=== PATIENT | male | born 1965 ===

== ENCOUNTER 2025-03-10 06:31 | Day surgery (SDC) | payer OTHER, SELFPAY | END 2025-03-10 12:53 | disposition home or self-care (01) | LOC: GI 06:31 | PROVIDERS: ATTENDING PHYSICIAN Internal Medicine | DX: Z12.11 Encounter for screening for malignant neoplasm of colon (principal); K64.8 Other hemorrhoids; K57.30 Diverticulosis of large intestine without perforation or abscess without bleeding; K62.89 Other specified diseases of anus and rectum; Z86.0100 Personal history of colon polyps, unspecified; K62.1 Rectal polyp | CPT/HCPCS: 45380; 88305 ==